=== PATIENT | male | born 1995 | race Two or more races ===

== ENCOUNTER 2021-09-28 23:55 | Emergency (ER) | payer BC ==
[2021-09-29 02:23] LABS: BLOOD UREA NITROGEN,BUN 12 mg/dL (7.0-18.0); CARBON DIOXIDE,CO2 26.3 mmol/L (21.0-32.0); CHLORIDE,CL 103 mmol/L (98-107); GLUCOSE RANDOM 121 mg/dL (74-106); POTASSIUM,K 4.1 mmol/L (3.5-5.1); SODIUM,NA 139 mmol/L (136-148)
[2021-09-29] MEDS: Cephalexin 500 MG Cap PO STA (02:41)
== END 2021-09-29 02:45 | disposition home or self-care (01) ==
LOC: MW.ED 23:55
DX: L03.317 Cellulitis of buttock (principal); I10 Essential (primary) hypertension
CPT/HCPCS: 36415; 71045; 80053; 83735; 85025; 93005; 99283; A9270; 93010; 99284